=== PATIENT | female | born 1985 | race American Indian/Alaskan Native ===

== ENCOUNTER 2022-06-01 07:45 | Inpatient (IN) | payer OTHER ==
[~2022-06-01] VITALS: Ht 157.5 cm; Wt 115.2 kg
[2022-06-06] MEDS ORDERED: PERCOCET 5-3251 EACH PO (14:25)
[2022-06-06] MEDS ORDERED: SURFAK240 M1 PO (14:25)
== END 2022-06-06 14:53 | disposition home or self-care (01) | DRG 743 ==
LOC: SURH 07:45 → O/R 06-03 05:55 → OB/GYN 06-03 05:55 → SURH 06-03 07:45 → OB/GYN 06-03 10:46
PROVIDERS: ADMIT Obstetrics & Gynecology; ATTEND Obstetrics & Gynecology
PROC: 0UT70ZZ Resection of Bilateral Fallopian Tubes, Open Approach (ICD-10-PCS; 2022-06-03)
PROC: 0DNW0ZZ Release Peritoneum, Open Approach (ICD-10-PCS; 2022-06-03)
PROC: 0UT90ZZ Resection of Uterus, Open Approach (ICD-10-PCS; principal; 2022-06-03 08:45)
DX: D25.1 Intramural leiomyoma of uterus (principal); Z20.822 Contact with and (suspected) exposure to COVID-19; N73.6 Female pelvic peritoneal adhesions (postinfective)

== ENCOUNTER 2023-12-15 10:52 | Outpatient (CLI) | payer OTHER ==
[~2023-12-15 10:52] MED LIST: PERCOCET 5-3251 EACH PO; SURFAK240 M1 PO
== END 2023-12-15 11:11 | disposition home or self-care (01) ==
LOC: MRI 10:52
PROVIDERS: ATTEND Obstetrics & Gynecology
DX: R10.2 Pelvic and perineal pain (principal); N83.292 Other ovarian cyst, left side; N18.1 Chronic kidney disease, stage 1; N28.1 Cyst of kidney, acquired
CPT/HCPCS: 72197; 74183